=== PATIENT | male | born 1975 | race Caucasian/White ===

== ENCOUNTER 2021-01-10 19:05 | Emergency (ER) | payer SELFPAY ==
[2021-01-10] MEDS ORDERED: predniSONE 20 MG TAB ONE (19:30)
== END 2021-01-10 19:30 | disposition home or self-care (01) ==
LOC: BURERS 19:05
DX: S10.96XA Insect bite of unspecified part of neck, initial encounter (principal); B20 Human immunodeficiency virus [HIV] disease; W57.XXXA Bitten or stung by nonvenomous insect and other nonvenomous arthropods, initial encounter
CPT/HCPCS: 99282; J7512

== ENCOUNTER 2021-09-07 11:43 | Emergency (ER) | payer SELFPAY | END 2021-09-07 12:07 | disposition home or self-care (01) | LOC: BURERS 11:43 | DX: B00.2 Herpesviral gingivostomatitis and pharyngotonsillitis (principal); A09 Infectious gastroenteritis and colitis, unspecified; Z21 Asymptomatic human immunodeficiency virus [HIV] infection status; Z87.19 Personal history of other diseases of the digestive system; Z79.899 Other long term (current) drug therapy | CPT/HCPCS: 99283 ==

== ENCOUNTER 2021-11-16 07:29 | Emergency (ER) | payer SELFPAY ==
[2021-11-16] MEDS ORDERED: Iopamidol 370 76% 100 ML VIAL FS ONE (07:30)
[2021-11-16 08:21] LABS: #Basophils 0.1 thou/uL (0.0-0.2); #Eosinphils 0.3 thou/uL (0.0-0.7); #Lymphocytes 1.9 thou/uL (1.20-3.40); #Monocytes 0.5 thou/uL (0.11-0.59); #Neutrophils 4.2 thou/uL (1.40-6.50); %Basophils 0.9 % (0.0-1.0); %Lymphocytes 27.2 % (21.0-51.0); %Monocytes 6.8 % (0.0-10.0); %Neutrophils 60.1 % (42.0-75.0); Hemoglobin 14.7 g/dL (14.0-18.0); Mean Corpuscular HGB CONC 32.7 g/dL (32.0-36.0); Mean Corpuscular Hemoglobin 28.2 pg (27.0-31.0); Mean Corpuscular Volume 86.3 fL (78.0-98.0); Mean Platelet Volume 5.2 fL (7.4-10.4); Platelet Count 259 thou/uL (130-400); RBC Distribution Width 13.3 % (11.5-14.5); Red Blood Cell (RBC) Count 5.22 mill/uL (4.70-6.10); White Blood Cell (WBC) Count 6.9 thou/uL (4.8-10.8)
[2021-11-16 08:37] LABS: ALT (SGPT) 24 U/L (8-55); AST (SGOT) 17 U/L (5-34); Albumin 4.2 g/dL (3.5-5.0); Alkaline Phosphatase 77 U/L (40-110); Anion Gap 14 mmol/L (10-20); BUN (Urea Nitrogen) 12 mg/dL (8.9-20.6); Calc. Creatinine Clearance 0 mL/min (70-130); Calcium 9.1 mg/dL (7.8-10.44); Carbon Dioxide 25 mmol/L (22-29); Chloride 104 mmol/L (98-107); Estimated GFR 97; Globulin 4.3 g/dL (2.4-3.5); Glucose 103 mg/dL (70-105); Lipase 40 U/L (8-78); Protein, Total 8.5 g/dL (6.0-8.3); Sodium 139 mmol/L (136-145)
[2021-11-16] MEDS ORDERED: Ondansetron ODT 4 MG TAB ONE (09:35)
== END 2021-11-16 09:46 | disposition home or self-care (01) ==
LOC: BURERS 07:29
DX: K92.1 Melena (principal); I10 Essential (primary) hypertension; B20 Human immunodeficiency virus [HIV] disease; Z87.19 Personal history of other diseases of the digestive system; Z79.899 Other long term (current) drug therapy
CPT/HCPCS: 74177; 80053; 82274; 83690; 85025; Q0162; Q9967

== ENCOUNTER 2022-01-14 08:49 | Emergency (ER) | payer SELFPAY | END 2022-01-14 09:38 | disposition home or self-care (01) | LOC: BURERS 08:49 | DX: K62.89 Other specified diseases of anus and rectum (principal); I10 Essential (primary) hypertension; B20 Human immunodeficiency virus [HIV] disease; Z79.899 Other long term (current) drug therapy | CPT/HCPCS: 99283 ==

== ENCOUNTER 2022-05-28 08:20 | Emergency (ER) | payer OTHER, SELFPAY | END 2022-05-28 09:04 | disposition home or self-care (01) | LOC: BURERS 08:20 | DX: S61.315A Laceration without foreign body of left ring finger with damage to nail, initial encounter (principal); I10 Essential (primary) hypertension; B20 Human immunodeficiency virus [HIV] disease; W26.8XXA Contact with other sharp object(s), not elsewhere classified, initial encounter; Z79.899 Other long term (current) drug therapy | CPT/HCPCS: 12001 ==